=== PATIENT | female | born 1995 | race Caucasian/White ===

== ENCOUNTER 2023-09-26 16:44 | Inpatient (IN) | payer MEDICAID ==
[~2023-09-26] VITALS: Ht 152.4 cm; Wt 104.8 kg
[2023-09-26 17:11] VITALS: BP 118/61; PULSE 76; RESP 18; TEMP 98.4; O2SAT 98
[2023-09-26] MEDS: ACETAMINOPHEN 325 MG TAB PO ONE (19:42)
[2023-09-26] MEDS: ONDANSETRON 4 MG ODT PO ONE (19:45)
[2023-09-26 19:53] LABS: BASOPHILS # (AUTO) 0.1 K/uL (0.00-0.22); BASOPHILS % (AUTO) 0.4 % (0.0-2.0); HEMATOCRIT 41.9 % (36-48); HEMOGLOBIN 14.5 g/dL (12.0-16.0); LYMPHOCYTES # (AUTO) 1.5 K/uL (2.5-16.5); LYMPHOCYTES % (AUTO) 8.1 % (20.5-51.1); MEAN CORPUSCULAR HEMOGLOBIN 29 pg (27-31); MEAN CORPUSCULAR HGB CONC 35 g/dL (33-37); MEAN CORPUSCULAR VOLUME 83.4 fL (80-94); MONOCYTES # (AUTO) 0.7 K/uL (0.8-1.0); MONOCYTES % (AUTO) 3.9 % (1.7-9.3); NEUTROPHILS # (AUTO) 16.6 K/uL (1.8-7.7); NEUTROPHILS % (AUTO) 87.6 % (42.2-75.2); PLATELET COUNT (AUTO) 321 K/uL (140-450); RED BLOOD CELL COUNT(AUTO) 5.02 MIL/uL (4.20-5.40); RED CELL DISTRIBUTION WIDTH 13.6 % (11.6-13.7)
[2023-09-26 20:08] LABS: ALBUMIN 4.2 g/dL (3.4-5.0); CALCIUM 9.4 mg/dL (8.5-10.1); CARBON DIOXIDE 28.4 mmol/L (21-32); CREATININE 0.9 mg/dL (0.6-1.3); POTASSIUM 4.4 mmol/L (3.5-5.1); TOTAL BILIRUBIN 1.1 mg/dL (0.0-1.0); TOTAL PROTEIN, SERUM 8.1 g/dL (6.4-8.2)
[2023-09-26] MEDS ORDERED: traMADol 50 MG TAB PO ONE (21:15)
[2023-09-26] MEDS ORDERED: TRAM-748 PO (21:15)
[2023-09-26] MEDS: ONDANSETRON 4 MG/2 ML VIAL IVP ONE (22:06)
[2023-09-26] MEDS: MORPHINE SULFATE 4 MG/ML SYR IVP ONE (22:09)
[2023-09-26] MEDS ORDERED: ONDANSETRON 4 MG/2 ML VIAL IVP PRN (22:30)
[2023-09-26] MEDS ORDERED: MELATONIN 3 MG TAB PO PRN (22:30)
[2023-09-26] MEDS ORDERED: MAG SULF 2000 MG/WATER PREMIX 50 ML IV PRN (22:30)
[2023-09-26] MEDS ORDERED: POLYETHYLENE GLYCOL 17 GM/PKT PO PRN (22:30)
[2023-09-26 22:37] LABS: LACTIC ACID 1.2 mmol/L (0.4-2.0)
[2023-09-26 23:00] VITALS: BP 111/71; PULSE 83; RESP 16; TEMP 96.9; O2SAT 98
[2023-09-26 23:00] LABS: INR 0.96 (0.8-1.2); PARTIAL THROMBOPLASTIN TIME 29.6 secs (22-35.6); PROTHROMBIN TIME 10.1 secs (10.8-13.4)
[2023-09-26] MEDS: NACL 0.9% 1,000 ML IV SCH (23:16)
[2023-09-27] MEDS: MORPHINE SULFATE 2 MG/ML SYR IVP PRN (02:29)
[2023-09-27] MEDS: HYDROcodone/APAP 5/325 MG 1 TAB TAB PO PRN (03:26)
[2023-09-27 04:00] VITALS: BP 91/54; PULSE 101; TEMP 98.1; O2SAT 96
[2023-09-27] MEDS: PIPERACILLIN/TAZOBACTAM 3.375 GM in DEXTROSE 5% 50 ML IV SCH (05:08)
[2023-09-27] MEDS: KETOROLAC 30 MG/ML VIAL IVP PRN (05:08)
[2023-09-27] MEDS: PIPERACILLIN/TAZOBACTAM 3.375 GM VIAL IV ONE (05:14)
[2023-09-27 07:19] LABS: BASOPHILS % (AUTO) 0.2 % (0.0-2.0); HEMATOCRIT 41.4 % (36-48); HEMOGLOBIN 14.2 g/dL (12.0-16.0); LYMPHOCYTES # (AUTO) 0.8 K/uL (2.5-16.5); LYMPHOCYTES % (AUTO) 5.2 % (20.5-51.1); MEAN CORPUSCULAR HEMOGLOBIN 29 pg (27-31); MEAN CORPUSCULAR HGB CONC 34 g/dL (33-37); MEAN CORPUSCULAR VOLUME 84.6 fL (80-94); MONOCYTES # (AUTO) 0.6 K/uL (0.8-1.0); NEUTROPHILS # (AUTO) 13.6 K/uL (1.8-7.7); NEUTROPHILS % (AUTO) 90.6 % (42.2-75.2); PLATELET COUNT (AUTO) 282 K/uL (140-450); RED CELL DISTRIBUTION WIDTH 13.4 % (11.6-13.7)
[2023-09-27 07:43] LABS: ALBUMIN 3.6 g/dL (3.4-5.0); ANION GAP 13.6 (8-16); CALCIUM 9.1 mg/dL (8.5-10.1); CARBON DIOXIDE 27.4 mmol/L (21-32); MAGNESIUM 1.9 mg/dL (1.8-2.4); PHOSPHORUS 2.8 mg/dL (2.5-4.9); TOTAL BILIRUBIN 1.3 mg/dL (0.0-1.0); TOTAL PROTEIN, SERUM 7.4 g/dL (6.4-8.2)
[2023-09-27 08:00] VITALS: BP 106/52; PULSE 102; RESP 18; TEMP 98.2; O2SAT 97
[2023-09-27 13:27] VITALS: BP 111/54
[2023-09-27] MEDS: ACETAMINOPHEN 100 ML IV ONE (14:43)
[2023-09-27] MEDS ORDERED: SEVOFLURANE 250 ML BTL INH ONE (14:45)
[2023-09-27] MEDS: LIDOCAINE/EPI 1% 1:100000 20 ML VIAL INJ ONE (15:15)
[2023-09-27] MEDS: BUPIVACAINE-MPF 0.25% 30 ML VIAL INJ ONE (15:15)
[2023-09-27] MEDS: fentaNYL citrate 0.05 MG/ML VIAL ONE (15:22)
[2023-09-27] MEDS: MIDAZOLAM 2 MG/2 ML VIAL ONE (15:22)
[2023-09-27] MEDS: PROPOFOL 200 MG/20 ML VIAL IV ONE (15:52)
[2023-09-27] MEDS: ONDANSETRON 4 MG/2 ML VIAL ONE (15:53)
[2023-09-27] MEDS: ROCURONIUM 50 MG/5 ML VIAL IV ONE (15:53)
[2023-09-27] MEDS: METOCLOPRAMIDE 10 MG/2 ML INJ VIAL ONE (15:53)
[2023-09-27] MEDS: SODIUM 10 ML ONE (15:53)
[2023-09-27] MEDS: PHENYLEPHRINE 10 MG/ML VIAL ONE (15:53)
[2023-09-27] MEDS: KETOROLAC 60 MG/2 ML VIAL IM ONE (16:01)
[2023-09-27] MEDS: GLYCOPYRROLATE 0.2 MG/ML VIAL ONE (16:25)
[2023-09-27] MEDS: NEOSTIGMINE 1:1000 10 MG/10 ML VIAL ONE (16:25)
[2023-09-27] MEDS: NACL 0.9% 1,000 ML IV SCH (16:35)
[2023-09-27] MEDS ORDERED: HYDROmorphone 1 MG/ML AMP IVP PRN (16:55)
[2023-09-27] MEDS ORDERED: ONDANSETRON 4 MG/2 ML VIAL IVP PRN (16:55)
[2023-09-27] MEDS ORDERED: MEPERIDINE 25 MG/ML SYR IVP PRN (16:55)
[2023-09-27] MEDS ORDERED: diphenhydrAMINE 50 MG/ML VIAL IVP PRN (16:55)
[2023-09-27] MEDS: LACTATED RINGERS 1,000 ML IV SCH (16:55)
[2023-09-27 19:20] VITALS: BP 89/44; PULSE 92; RESP 16; TEMP 99.3; O2SAT 93
[2023-09-27 20:00] VITALS: BP 93/58; PULSE 86
[2023-09-27] MEDS: ACETAMINOPHEN 325 MG TAB PO PRN (21:19)
[2023-09-28 04:00] VITALS: BP 104/58; PULSE 98; TEMP 97.4; O2SAT 97
[2023-09-28 07:15] LABS: BASOPHILS % (AUTO) 0.3 % (0.0-2.0); HEMATOCRIT 33.6 % (36-48); HEMOGLOBIN 11.5 g/dL (12.0-16.0); LYMPHOCYTES % (AUTO) 6.5 % (20.5-51.1); MEAN CORPUSCULAR HEMOGLOBIN 29 pg (27-31); MEAN CORPUSCULAR HGB CONC 34 g/dL (33-37); MEAN CORPUSCULAR VOLUME 84.7 fL (80-94); MONOCYTES # (AUTO) 0.5 K/uL (0.8-1.0); MONOCYTES % (AUTO) 3.5 % (1.7-9.3); NEUTROPHILS # (AUTO) 14.1 K/uL (1.8-7.7); NEUTROPHILS % (AUTO) 89.7 % (42.2-75.2); PLATELET COUNT (AUTO) 207 K/uL (140-450); RED BLOOD CELL COUNT(AUTO) 3.97 MIL/uL (4.20-5.40); RED CELL DISTRIBUTION WIDTH 13.2 % (11.6-13.7); WHITE BLOOD COUNT (AUTO) 15.7 K/uL (4.8-10.8)
[2023-09-28 07:39] LABS: ALBUMIN 2.6 g/dL (3.4-5.0); ANION GAP 11.9 (8-16); CALCIUM 8.3 mg/dL (8.5-10.1); CARBON DIOXIDE 26.3 mmol/L (21-32); MAGNESIUM 1.8 mg/dL (1.8-2.4); PHOSPHORUS 2.1 mg/dL (2.5-4.9); POTASSIUM 3.2 mmol/L (3.5-5.1); TOTAL BILIRUBIN 1.7 mg/dL (0.0-1.0); TOTAL PROTEIN, SERUM 6.2 g/dL (6.4-8.2)
[2023-09-28] MEDS: POTASSIUM CHLORIDE 10 MEQ TABER PO PRN (09:59)
[2023-09-28 12:00] VITALS: BP 110/60; PULSE 88; RESP 18; TEMP 98.8; O2SAT 97
[2023-09-28 16:00] VITALS: BP 101/56; PULSE 90; RESP 18; TEMP 98.9; O2SAT 97
[2023-09-28] MEDS ORDERED: SODIUM CHLORIDE FLUSH 10 ML SYR IVF SCH (21:00)
[2023-09-28] MEDS: HYDRAGUARD CREAM TP ONE ×2 (21:39)
[2023-09-29] MEDS: Z-GUARD PASTE TP SCH (01:30)
[2023-09-29 04:00] VITALS: BP 110/62; PULSE 96; RESP 18; TEMP 98.6; O2SAT 94
[2023-09-29 06:37] LABS: BASOPHILS % (AUTO) 0.4 % (0.0-2.0); EOSINOPHILS # (AUTO) 0.1 K/uL (0-0.4); EOSINOPHILS % (AUTO) 1.1 % (0.0-4.0); HEMATOCRIT 29.9 % (36-48); HEMOGLOBIN 10.3 g/dL (12.0-16.0); LYMPHOCYTES # (AUTO) 1.9 K/uL (2.5-16.5); LYMPHOCYTES % (AUTO) 14.3 % (20.5-51.1); MEAN CORPUSCULAR HEMOGLOBIN 29 pg (27-31); MEAN CORPUSCULAR HGB CONC 35 g/dL (33-37); MEAN CORPUSCULAR VOLUME 83.8 fL (80-94); MONOCYTES # (AUTO) 0.6 K/uL (0.8-1.0); MONOCYTES % (AUTO) 4.3 % (1.7-9.3); NEUTROPHILS # (AUTO) 10.8 K/uL (1.8-7.7); NEUTROPHILS % (AUTO) 79.9 % (42.2-75.2); PLATELET COUNT (AUTO) 197 K/uL (140-450); RED BLOOD CELL COUNT(AUTO) 3.57 MIL/uL (4.20-5.40); RED CELL DISTRIBUTION WIDTH 13.7 % (11.6-13.7); WHITE BLOOD COUNT (AUTO) 13.5 K/uL (4.8-10.8)
[2023-09-29 07:07] LABS: ALBUMIN 2.4 g/dL (3.4-5.0); ANION GAP 12.4 (8-16); CALCIUM 8.2 mg/dL (8.5-10.1); CARBON DIOXIDE 25.4 mmol/L (21-32); CREATININE 0.8 mg/dL (0.6-1.3); MAGNESIUM 1.9 mg/dL (1.8-2.4); PHOSPHORUS 2.1 mg/dL (2.5-4.9); TOTAL BILIRUBIN 0.7 mg/dL (0.0-1.0); TOTAL PROTEIN, SERUM 6.1 g/dL (6.4-8.2)
[2023-09-29 07:27] LABS: POTASSIUM 2.8 mmol/L (3.5-5.1)
[2023-09-29] MEDS: POTASSIUM CHLORIDE 10 MEQ TABER PO SCH (10:12)
[2023-09-29] MEDS ORDERED: CRUSHER, PILL MC ONE (10:16)
[2023-09-29] MEDS: KCL 20 MEQ IN 100 mL PREMIX 100 ML IV SCH (10:24)
[2023-09-29 12:00] VITALS: BP 112/64; PULSE 78; RESP 18; TEMP 98.3; O2SAT 97
[2023-09-29] MEDS ORDERED: NAPR-337 PO (13:59)
[2023-09-29] MEDS ORDERED: CIPR500T9 PO (13:59)
[2023-09-29] MEDS ORDERED: LACT10CA1 PO (13:59)
[2023-09-29] MEDS ORDERED: METR-435 PO (13:59)
[2023-09-29] MEDS ORDERED: POTA10TA70 PO (14:01)
[2023-09-29 14:05] VITALS: BP 110/62; PULSE 78; RESP 18; TEMP 98.5
== END 2023-09-29 15:45 | disposition home or self-care (01) | DRG 710 ==
LOC: MED 16:44 → MTU 21:58
PROVIDERS: ADMIT Family Medicine; ATTEND Family Medicine
PROC: 0FT44ZZ Resection of Gallbladder, Percutaneous Endoscopic Approach (ICD-10-PCS; principal; 2023-09-27 14:30)
PROC: 0DTJ4ZZ Resection of Appendix, Percutaneous Endoscopic Approach (ICD-10-PCS; 2023-09-27 14:30)
DX: A41.9 Sepsis, unspecified organism (principal); K35.32 Acute appendicitis with perforation, localized peritonitis, and gangrene, without abscess; K66.8 Other specified disorders of peritoneum; K80.00 Calculus of gallbladder with acute cholecystitis without obstruction; Z79.899 Other long term (current) drug therapy; J95.89 Other postprocedural complications and disorders of respiratory system, not elsewhere classified; J98.11 Atelectasis; Y83.9 Surgical procedure, unspecified as the cause of abnormal reaction of the patient, or of later complication, without mention of misadventure at the time of the procedure
CPT/HCPCS: 36415; 76705; 80053; 83605; 83690; 83735; 84100; 85025; 85610; 85730; 87040; 87045; 87070; 87081; 88304; 96365; 96375; 99285; J0694; J1885; J2001; J2250; J2270; J2370; J2405; J2543; J2704; J2710; J2765; J3010; J3480; J3490; J7030; J7060; J7120; Q0162; Q9967